=== PATIENT | male | born 1980 | race Caucasian/White ===

== ENCOUNTER 2016-05-24 22:42 | Emergency (ER) | payer MEDICAID ==
[~2016-05-24] VITALS: Ht 177.8 cm; Wt 77.1 kg
[~2016-05-24 22:42] MED LIST: ALBUTEROL SULF8.5 GM INH; AMOXICILLIN500 MG ORAL; CYCLOBENZAPRINE10 MG ORAL; FLOVENT2 PUFF2 INH; GENOPTIC O.O1 APPLIC LEFT EYE; IBUPROFEN600 MG ORAL; NORCO 5-325 TA1 EAC1 ORAL; NORCO 5-325 TA1 EACH ORAL; PREDNISONE20 MG ORAL; SYMBICORT 16010.2 G1 IH; VENTOLIN HFA18 GM INH
[2016-05-24] MEDS ORDERED: VENTOLIN HFA18 GM INH (23:51)
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
[2016-05-25] MEDS ORDERED: Albuterol ud Inhalation HHN ONE
[2016-05-25 00:45] VITALS: BP 133/66
== END 2016-05-25 00:45 | disposition home or self-care (01) ==
LOC: EMR 23:54
DX: J45.21 Mild intermittent asthma with (acute) exacerbation (principal)
CPT/HCPCS: 94640; 94664; 99283

== ENCOUNTER 2016-08-22 00:15 | Emergency (ER) | payer MEDICAID ==
[~2016-08-22] VITALS: Ht 177.8 cm; Wt 81.6 kg
[2016-08-22] MEDS: Norco 5mg/325mg tab ORAL ONE ×2 (01:18→01:22)
[2016-08-22] MEDS ORDERED: VALIUM5 MG ORAL (01:53)
[2016-08-22] MEDS ORDERED: HYDROCODON-ACE1 EA15 ORAL (01:53)
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
[2016-08-22 02:00] VITALS: BP_SYST 128; BP_SYST 133; BP_DIAS 80; BP_DIAS 86
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
== END 2016-08-22 02:02 | disposition home or self-care (01) ==
LOC: EMR 01:00
DX: S16.1XXA Strain of muscle, fascia and tendon at neck level, initial encounter (principal); J45.909 Unspecified asthma, uncomplicated; Z88.1 Allergy status to other antibiotic agents; V43.52XA Car driver injured in collision with other type car in traffic accident, initial encounter; Y92.410 Unspecified street and highway as the place of occurrence of the external cause; Y99.8 Other external cause status
CPT/HCPCS: 72052; 99284

== ENCOUNTER 2017-06-13 19:14 | Emergency (ER) | payer MEDICAID ==
[~2017-06-13] VITALS: Ht 180.3 cm; Wt 81.6 kg
[~2017-06-13 19:14] MED LIST changes: +HYDROCODON-ACE1 EA15 ORAL; +VALIUM5 MG ORAL
[2017-06-13] MEDS ORDERED: BREO ELLIPTA 11 EACH IH ×2 (19:29→19:53)
[2017-06-13] MEDS ORDERED: Albuterol ud Inhalation HHN ONE ×2 (19:45→20:15)
[2017-06-13] MEDS ORDERED: PREDNISONE20 MG ORAL (19:53)
[2017-06-13] MEDS ORDERED: VENTOLIN HFA18 GM INH (19:53)
--- NOTE | 2017-06-13 20:07 | Emergency Room Report ---
History of Present Illness General Chief Complaint: Dyspnea/Respdistress Source: Patient Present Illness HPI 36-year-old male presents with 2-3 days of productive cough Associated with recent rhinorrhea Denies chest pain, shortness of breath, myalgias, headache History of asthma, nonsmoker He used to use fluticasone daily Uses Ventolin only as rescue inhaler not On steroids currently Denies fever chills Allergies: Coded Allergies: ERYTHROMYCIN BASE (Unverified Adverse Reaction, Unknown, diarrhea, 02/03/14 ) Patient History Past Medical History: asthma Past Surgical History: none Pertinent Family History: none Social History: Denies: smoking, alcohol use, drug use Immunizations: UTD Reviewed Nursing Documentation: PMH: Agreed, PSxH: Agreed Nursing Documentation-PMH Past Medical History: No History, Except For Hx Asthma: Yes Review of Systems All Other Systems: negative except mentioned in HPI Physical Exam Vital Signs Date Time Temp Pulse Resp B/P (MAP) Pulse Ox O2 Delivery O2 Flow Rate FiO2 06/13/17 19:26 98.2 86 16 146/84 96 Room Air Sp02 EP Interpretation: reviewed, normal General Appearance: normal inspection, well appearing, no apparent distress, alert, GCS 15, non-toxic Head: normocephalic, atraumatic Eyes: bilateral eye PERRL, bilateral eye EOMI ENT: normal ENT inspection, hearing grossly normal, normal pharynx, no angioedema, normal voice, TMs + canals normal, uvula midline, moist mucus membranes Neck: normal inspection, full range of motion, supple, thyroid normal, no meningismus, no bony tend Respiratory: normal inspection, lungs clear, normal breath sounds, no rhonchi, no respiratory distress, no retraction, no accessory muscle use, speaking full sentences, wheezing Cardiovascular #1: regular rate, rhythm, no edema, no JVD, normal capillary refill Gastrointestinal: normal inspection, normal bowel sounds, non tender, soft, no mass, no peritonitis, non-distended, no guarding, no hernia, no pulsatile mass Genitourinary: no CVA tenderness Musculoskeletal: normal inspection, back normal, normal range of motion, no calf tenderness, pelvis stable, Kali's Sign negative Neurologic: normal inspection, alert, oriented x3, responsive, waistline joiner overlock III-XII nml as tested, motor strength/tone normal, cerebellar normal, normal gait, speech normal Psychiatric: normal inspection, judgement/insight normal, mood/affect normal, no suicidal/homicidal ideation, no delusions Skin: normal inspection, normal color, no rash Lymphatic: normal inspection, no adenopathy Medical Decision Making Diagnostic Impression: Primary Impression: Bronchitis ER Course mild asthma exacerbation likely due to URI Speaking full sentences No acute distress Rhinorrhea, post-nasal drip possible contribution to productive cough CXR negative for PNA No evidence of acute bacterial infection on exam Improved with albuterol X2, prednisone ER course: Patient has remained stable during ED stay. Disposition: Patient is to be discharged to home. Prescriptions given are prednisone, albuterol, fluticasone Patient is instructed to follow up with their primary care doctor within 5 days. Strict return precautions discussed with patient such as fever, chills, worsening/severe pain, nausea, vomiting, which may indicate severe illness. Patient verbalizes understanding and agrees with plan. Please note that this Emergency Department Report was dictated using [employer] technology software, occasionally this can lead to erroneous entry secondary to interpretation by the dictation equipment Chest X-Ray Diagnostic Results Chest X-Ray Diagnostic Results : Chest X-Ray Ordered: Yes # of Views/Limited/Complete: 1 View Indication: Shortness of Breath EP Interpretation: Yes Interpretation: no consolidation, no effusion, no pneumothorax, no acute cardiopulmonary disease Impression: No acute disease Electronically Signed by: Dr Forest Quinonez MD Last Vital Signs Date Time Temp Pulse Resp B/P (MAP) Pulse Ox O2 Delivery O2 Flow Rate FiO2 06/13/17 19:56 85 18 98 Room Air 06/13/17 19:26 98.2 146/84 Status: improved Disposition: HOME, SELF-CARE Condition: Improved Scripts Albuterol Sulfate (VENTOLIN HFA) 18 Gm Hfa.aer.ad 1 PUFF INH EVERY 6 HOURS for SOB, cough, #18 GM 0 Refills Prov: FOREST QUINONEZ M.D. 06/13/17 Fluticasone/Vilanterol (Breo Ellipta 100-25 Mcg INH) 1 Each Blst.w.dev 1 EACH IH DAILY for 30 Days, #1 EACH Prov: FOREST QUINONEZ M.D. 06/13/17 Prednisone* (PREDNISONE*) 20 Mg Tablet 40 MG ORAL DAILY for 3 Days, #6 TAB Prov: FOREST QUINONEZ M.D. 06/13/17 Patient Instructions: Acute Bronchitis, [id number] Additional Instructions: - Take prednisone twice daily for next 3 days - Take fluticasone daily - Use ventolin as needed for rescue medication FOREST QUINONEZ M.D. Jun 13, 2017 20:07
[2017-06-13 20:10] VITALS: BP 146/84
--- NOTE | 2017-06-14 09:12 | Diagnostic Imaging Report ---
Indication: Reason For Exam: SOB Technique: One view of the chest Comparison: 06/16/2015 Findings: Inspiration is suboptimal. Questionable faint ill-defined 13 mm density projects over the intersection of the right anterior second and posterior fifth ribs. The lungs and pleural spaces are otherwise clear. The heart size is normal. Impression: Questionable right upper lobe nodule, not evident on prior studies. Suspect summation artifact, but further evaluation with CT scan recommended to exclude neoplasm or other pathology No acute process otherwise Findings discussed by phone with Dr. Slater at the time of interpretation
== END 2017-06-13 20:25 | disposition home or self-care (01) ==
LOC: EMR 20:11
DX: J45.909 Unspecified asthma, uncomplicated (principal); Z88.1 Allergy status to other antibiotic agents
CPT/HCPCS: 71045; 94640; 94664; 99284; J7512

== ENCOUNTER 2017-08-29 04:06 | Emergency (ER) | payer MEDICAID, OTHER ==
[~2017-08-29] VITALS: Ht 180.3 cm; Wt 81.6 kg
[~2017-08-29 04:06] MED LIST changes: +BREO ELLIPTA 11 EACH IH
[2017-08-29 04:30] VITALS: BP 138/86
--- NOTE | 2017-08-29 04:47 | Emergency Room Report ---
History of Present Illness General Chief Complaint: Laceration Source: Patient Present Illness HPI This is a 37-year-old male with no past medical history. He presents with chief complaint of laceration to lip. Onset was on Sunday 4 days ago. He said that his lip as snagged on the metal part of the door. He sustained a small laceration. It bled initially but stopped. He came into for evaluation now because he felt throbbing sensation that area and want to see whether or not he can be sutured to remove the scar. Denies any other complaint or now. Allergies: Coded Allergies: ERYTHROMYCIN BASE (Unverified Adverse Reaction, Unknown, diarrhea, 02/03/14 ) Patient History Past Medical History: see triage record, old chart reviewed Past Surgical History: other Pertinent Family History: none Social History: Denies: smoking Immunizations: other Reviewed Nursing Documentation: PMH: Agreed; PSxH: Agreed Nursing Documentation-PM Past Medical History: No History, Except For Hx Asthma: Yes Review of Systems Eye: Denies: eye pain, blurred vision ENT: Denies: ear pain, nose congestion, throat swelling Respiratory: Denies: cough, shortness of breath Cardiovascular: Denies: chest pain, palpitations Gastrointestinal: Denies: abdominal pain, diarrhea, nausea, vomiting Musculoskeletal: Denies: back pain, joint pain Skin: Denies: rash Neurological: Denies: headache, numbness Endocrine: Denies: increased thirst, increased urine Hematologic/Lymphatic: Denies: easy bruising All Other Systems: negative except mentioned in HPI Physical Exam Vital Signs Date Time Temp Pulse Resp B/P (MAP) Pulse Ox O2 Delivery O2 Flow Rate FiO2 08/29/17 04:29 98.3 90 16 138/86 94 Room Air 98.2 vitals normal Sp02 EP Interpretation: reviewed, normal General Appearance: well appearing, no apparent distress, alert Head: normocephalic, atraumatic Eyes: bilateral eye PERRL, bilateral eye EOMI ENT: hearing grossly normal, normal pharynx, other - right upper lip: There is a V-shaped laceration of 3mm. No active bleeding. slightly gaping of about 1mm. Not through and through. Neck: full range of motion, supple, no meningismus Respiratory: chest non-tender, lungs clear, normal breath sounds Cardiovascular #1: regular rate, rhythm, no murmur Gastrointestinal: normal bowel sounds, non tender, no mass, no organomegaly, no bruit, non-distended Musculoskeletal: back normal, gait/station normal, normal range of motion Psychiatric: mood/affect normal Skin: warm/dry Medical Decision Making Diagnostic Impression: Primary Impression: Lip laceration Qualified Codes: S01.511A - Laceration without foreign body of lip, initial encounter ER Course Patient presents with a lip laceration that is several days old. Explained to the patient that I would not be suturing it because there was increased risk for infection. Also mean that I have to cut it back open again. Benefit would not outweighed the risk. We'll have him follow-up with plastic surgeon as needed. Last Vital Signs Date Time Temp Pulse Resp B/P (MAP) Pulse Ox O2 Delivery O2 Flow Rate FiO2 08/29/17 04:29 98.3 90 16 138/86 94 Room Air 98.2 Status: improved Disposition: HOME, SELF-CARE Condition: Stable Referrals: NOT CHOSEN IPA/,REFERRING (PCP) Patient Instructions: Nonsutured Laceration Care Additional Instructions: Your laceration is too old to be sutured right now. Follow-up with a plastic surgeon if you want any cosmetic suture repair. Return if symptom worsen. ANNALISA CORBETT M.D. Aug 29, 2017 04:47
[2017-08-29 04:50] VITALS: BP 138/86
== END 2017-08-29 04:50 | disposition home or self-care (01) ==
LOC: EMR 04:38
DX: S01.511A Laceration without foreign body of lip, initial encounter (principal); W22.8XXA Striking against or struck by other objects, initial encounter; Y92.9 Unspecified place or not applicable; J45.909 Unspecified asthma, uncomplicated; Z88.1 Allergy status to other antibiotic agents
CPT/HCPCS: 99282

== ENCOUNTER 2017-09-29 20:18 | Emergency (ER) | payer OTHER ==
[~2017-09-29] VITALS: Ht 177.8 cm; Wt 81.6 kg
[2017-09-29 20:50] VITALS: BP 149/91
[2017-09-29] MEDS ORDERED: IBUPROFEN600 MG ORAL (21:34)
[2017-09-29 21:55] VITALS: BP 149/91
--- NOTE | 2017-09-29 21:55 | Diagnostic Imaging Report ---
EXAM: XR Right Hand Complete, 3 or More Views CLINICAL HISTORY: PAIN TECHNIQUE: Frontal, lateral and oblique views of the right hand. COMPARISON: No relevant prior studies available. FINDINGS: Bones/joints: Displaced spiral fracture through the third metacarpal. No dislocation. Soft tissues: Unremarkable. No radiopaque foreign body. IMPRESSION: Displaced spiral fracture through the third metacarpal.
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
== END 2017-09-29 21:55 | disposition home or self-care (01) ==
LOC: EMR 21:00
DX: S62.322A Displaced fracture of shaft of third metacarpal bone, right hand, initial encounter for closed fracture (principal); V43.52XA Car driver injured in collision with other type car in traffic accident, initial encounter; Y92.410 Unspecified street and highway as the place of occurrence of the external cause; J45.909 Unspecified asthma, uncomplicated; Z88.1 Allergy status to other antibiotic agents
CPT/HCPCS: 29125; 99283

== ENCOUNTER 2017-10-06 17:09 | Emergency (ER) | payer OTHER ==
[~2017-10-06] VITALS: Ht 170.2 cm; Wt 81.6 kg
[2017-10-06 17:20] VITALS: BP 142/79
--- NOTE | 2017-10-06 17:26 | Emergency Room Report ---
History of Present Illness General Chief Complaint: Upper Extremity Injury Present Illness HPI 37-year-old male patient presents ER requesting x-ray of right hand. Patient reports that he has a fracture of one of his wrist bones and was seen in this ER previously 1 week ago. States that since that time he is followed up with his orthopedic doctor they placed his wrist and hand. patient reports that he was in the shower earlier today and heard a "pop" in his right hand. Reports he contact his orthopedist who told him to report [facility] to have repeat imaging done. patient denies any loss of consciousness. patient reports he is right- hand dominant. patient denies other acute symptoms at this time. reports was told by orthopedist that he does not need surgery. Allergies: Coded Allergies: ERYTHROMYCIN BASE (Unverified Adverse Reaction, Unknown, diarrhea, 02/03/14 ) Patient History Past Medical History: see triage record Reviewed Nursing Documentation: PMH: Agreed; PSxH: Agreed Nursing Documentation-PMH Hx Asthma: Yes Review of Systems All Other Systems: negative except mentioned in HPI Physical Exam Vital Signs Date Time Temp Pulse Resp B/P (MAP) Pulse Ox O2 Delivery O2 Flow Rate FiO2 10/06/17 17:12 98.0 89 20 142/79 99 Room Air 98.1 Sp02 EP Interpretation: reviewed, normal General Appearance: well appearing, no apparent distress, alert, GCS 15, non- toxic Head: normocephalic, atraumatic Respiratory: lungs clear, normal breath sounds, no rhonchi, no respiratory distress, no accessory muscle use, no wheezing, speaking full sentences Cardiovascular #1: regular rate, rhythm, no edema Musculoskeletal: back normal, digits/nails normal, gait/station normal, non- tender, decreased range of motion - secondary to cast, other - able to wiggle fingers, cap Refill less than 2 seconds Neurologic: alert, oriented x3, responsive, motor strength/tone normal, sensory intact Medical Decision Making PA Attestation Dr. Slater is my supervising Physician whom patient management has been discussed with. Diagnostic Impression: Primary Impression: Fracture of fourth metacarpal bone Additional Impression: Fracture of third metacarpal bone ER Course Pt. presents to the ED requesting repeat xray of fracture right hand s/p hearing "pop". Ddx considered but are not limited to fracture, sprain, strain, contusion, dislocation. No erythema, no warmth to touch, no fever, nontoxic appearing, low suspicion for septic joint. Vital signs: are WNL, pt. is afebrile Ordered X-ray and pain medication. ER COURSE PE limited due to cast, do not believe cast needs to be removed at this time. Previous report and x-ray reviewed, patient has spiral fracture of 3rd metacarpal on right hand. Patient resents to ER with right hand hard cast. Do not believe cast needs to be removed at this time, limits complete physical exam due to cast. An X-ray of the right hand was ordered, results show 1. Radiographs submitted in plaster limiting bony detail. 2. Previously seen spiral fracture of the third metacarpal appears slightly more displaced radially on the current study which may be due to differences in technique/positioning. Attention on followup. 3. Minimally displaced spiral fracture of the mid fourth metacarpal now evident , new from prior. Correlate for interval trauma. Alternatively, findings may reflect interval displacement of a previously nondisplaced/hairline fracture. Orthopedic followup recommended. 4. No dislocation. per the official [facility] reading. Consult with [facility] radiologist regarding findings. Patient currently in hard cast provided by financial services specialist, fracture is minimally displaced, does not need new casting at this time. Patient instructed on RICE method: rest, ice, compression, elevation. Followup with orthopedist to discuss further treatment and plan. Patient denies pain, denies need for pain medication, states taking Tylenol Extra Strength at home for pain symptoms. Denies need for Rx for pain medication. DISCHARGE: Continue to take medications as previously instructed by financial services specialist. At this time pt. is stable for d/c to home. Patient is resting comfortably, in no acute distress, nontoxic appearing, talking without difficulty. Will provide printed patient care instructions, and any necessary prescriptions. Patient instructed to follow with primary care provider in 3 - 5 days and to request further orthopedic follow-up. Care plan and follow up instructions have been discussed with the patient prior to discharge. Take medications as directed. Patient questions asked and answered. Patient reports understanding and agreement to treatment plan. ER precautions given, patient instructed to return to ER immediately for any new or worsening of symptoms. - Please note that this Emergency Department Report was dictated using Nostore[employer]istered medical transcriptionist technology software, occasionally this can lead to erroneous entry secondary to interpretation by the dictation equipment. Other X-Ray Diagnostic Results Other X-Ray Diagnostic Results : X-Ray ordered: right hand # of Views/Limited Vs Complete: 3 View Indication: Pain EP Interpretation: Yes PA Xray: Interpretation reviewed, by supervising MD, and agrees with findings. Interpretation: other - minimally displaced fractures of third and fourth metacarpals, hand in cast Impression: Other - fracture of third and fourth metacarpal PA Scribe Text Mark Carson PA-C Last Vital Signs Date Time Temp Pulse Resp B/P (MAP) Pulse Ox O2 Delivery O2 Flow Rate FiO2 10/06/17 17:20 98.1 20 142/79 99 Room Air 98.1 10/06/17 17:12 89 Disposition: HOME, SELF-CARE Condition: Stable Patient Instructions: Metacarpal Fracture Additional Instructions: Patient instructed to follow up with orthopedist and discuss further treatment and referral plan. Patient instructed on RICE method: rest, ice, compression, elevation. Patient instructed to NWB. Take medications as directed. Patient questions asked and answered. ER precautions given, patient instructed to return to ER immediately for any new or worsening of symptoms. [place] October 06, 2017 17:26
--- NOTE | 2017-10-06 18:17 | Diagnostic Imaging Report ---
EXAM: XR Right Hand Complete, 3 or More Views CLINICAL HISTORY: PAIN TECHNIQUE: Frontal, lateral and oblique views of the right hand. COMPARISON: 09/29/17 FINDINGS: Bones/joints: 3 radiographs of the right hand are submitted in plaster which limits bony detail. Spiral fracture of the third metacarpal as seen on prior with stable versus slightly increased radial displacement (2.4 mm) allowing for differences in technique. Minimally displaced spiral fracture of the mid fourth metacarpal appears new compared to prior and could reflect interval displacement of a previously nondisplaced/hairline fracture. No dislocation. Prior surgical pinning of a fracture of the fourth digit fracture again seen. Soft tissues: Unremarkable. No radiopaque foreign body. IMPRESSION: 1. Radiographs submitted in plaster limiting bony detail. 2. Previously seen spiral fracture of the third metacarpal appears slightly more displaced radially on the current study which may be due to differences in technique/positioning. Attention on followup. 3. Minimally displaced spiral fracture of the mid fourth metacarpal now evident, new from prior. Correlate for interval trauma. Alternatively, findings may reflect interval displacement of a previously nondisplaced/hairline fracture. Orthopedic followup recommended. 4. No dislocation. [employer] 10/06/17 18:18 Call Doctor Regarding Other, called Mark NICKERSON on 10/06 18:18 (-07:00)
[2017-10-06 18:33] VITALS: BP 142/79
== END 2017-10-06 18:34 | disposition home or self-care (01) ==
LOC: EMR 17:53
DX: S62.302A Unspecified fracture of third metacarpal bone, right hand, initial encounter for closed fracture (principal); W22.8XXA Striking against or struck by other objects, initial encounter; Y92.9 Unspecified place or not applicable; Z88.1 Allergy status to other antibiotic agents; J45.909 Unspecified asthma, uncomplicated
CPT/HCPCS: 99283

== ENCOUNTER 2017-10-29 23:52 | Emergency (ER) | payer OTHER ==
[~2017-10-29] VITALS: Ht 177.8 cm; Wt 81.6 kg
[2017-10-30 00:50] VITALS: BP 131/76
[2017-10-30] MEDS ORDERED: Tylenol #3 tab (300mg/30mg) PO ONE (01:00)
[2017-10-30] MEDS ORDERED: ROBAXIN-750750 MG PO (03:13)
[2017-10-30] MEDS ORDERED: NORCO 5-325 TA1 EACH ORAL (03:13)
[2017-10-30] MEDS ORDERED: IBUPROFEN600 MG ORAL (03:13)
[2017-10-30 03:20] VITALS: BP 125/74
[2017-10-30 03:21] VITALS: BP 131/76
--- NOTE | 2017-10-30 13:17 | Diagnostic Imaging Report ---
Indication: Pain in ribs and chest Technique: One view of the chest, 2 views of the right ribs, 2 views of the left ribs Comparison: none Findings: There is atelectasis at the left lung base. Lungs and pleural spaces are otherwise clear. The heart is upper limits normal in size. No pneumothorax. No evidence of acute rib fracture. Impression: Left basilar atelectasis. No acute process otherwise No acute bony trauma. No evidence of pneumothorax
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
== END 2017-10-30 03:21 | disposition home or self-care (01) ==
LOC: EMR 10-30 00:45
DX: S20.212A Contusion of left front wall of thorax, initial encounter (principal); S20.211A Contusion of right front wall of thorax, initial encounter; Y04.2XXA Assault by strike against or bumped into by another person, initial encounter; Y92.9 Unspecified place or not applicable; J45.909 Unspecified asthma, uncomplicated
CPT/HCPCS: 71045; 99284

== ENCOUNTER 2018-03-17 19:06 | Emergency (ER) | payer OTHER ==
[~2018-03-17] VITALS: Ht 177.8 cm; Wt 81.6 kg
[~2018-03-17 19:06] MED LIST changes: +ROBAXIN-750750 MG PO
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
[2018-03-17] MEDS ORDERED: NAPROXEN500 M2 ORAL (19:36)
[2018-03-17] MEDS ORDERED: VOLTAREN100 G1 TP (19:36)
[2018-03-17 19:41] VITALS: BP 130/87
[2018-03-17 19:50] VITALS: BP 130/87
== END 2018-03-17 19:50 | disposition home or self-care (01) ==
LOC: EMR 19:32
DX: S00.83XA Contusion of other part of head, initial encounter (principal); Y04.2XXA Assault by strike against or bumped into by another person, initial encounter; Y92.9 Unspecified place or not applicable; Z88.1 Allergy status to other antibiotic agents; J45.909 Unspecified asthma, uncomplicated
CPT/HCPCS: 99283

== ENCOUNTER 2018-06-17 19:11 | Emergency (ER) | payer MEDICAID, OTHER ==
[~2018-06-17] VITALS: Ht 177.8 cm; Wt 88.5 kg
[~2018-06-17 19:11] MED LIST changes: +NAPROXEN500 M2 ORAL; +VOLTAREN100 G1 TP
[2018-06-17 19:20] VITALS: BP 132/81
--- NOTE | 2018-06-17 19:20 | NUR ---
ED Nurse Note: Patient presents with asthma exacerbation and finger injury of right middle finger. pt noted to have wound on the right middle finger, pt stated it happend few days ago. denies pain. will continue to monitor.
[2018-06-17] MEDS ORDERED: Bacitracin Oint UD TOPIC ONE (19:45)
[2018-06-17] MEDS ORDERED: Augmentin 875mg Tab ORAL ONE (19:45)
[2018-06-17] MEDS ORDERED: Tetanus/Diptheria/Pertussis Vaccine 0.5ml Syr IM ONE (19:45)
[2018-06-17] MEDS: Ipratropium 0.02% Inh Soln 2.5ml UD HHN SCH ×3 (19:55→20:15)
[2018-06-17] MEDS: Albuterol ud Inhalation HHN SCH ×3 (19:56→20:15)
[2018-06-17] MEDS ORDERED: BACITRACIN15 GM TOPIC (20:55)
[2018-06-17] MEDS ORDERED: AUGMENTIN 875-1 EAC1 ORAL (20:55)
[2018-06-17] MEDS ORDERED: FLOVENT2 PUFF2 INH (20:55)
[2018-06-17] MEDS ORDERED: PREDNISONE20 MG ORAL (20:55)
[2018-06-17] MEDS ORDERED: ALBUTEROL SULF8.5 GM INH (20:55)
[2018-06-17 21:05] VITALS: BP 132/81
--- NOTE | 2018-06-17 21:05 | NUR ---
ER Nurse Note: Pt seen, treated, medically cleared for discharge by ERMD. Discharge instructions and prescriptions given with repeat verbalization by pt. Instructed pt to follow up with primary care physican within one week. Pt a&ox4, VSS, no signs of distress. O2 sat 100% room air. ID removed. Pt ambulates, left with all belongings via own transportation.
--- NOTE | 2018-06-19 07:06 | Emergency Room Report ---
History of Present Illness General Chief Complaint: Asthma Source: Patient Present Illness HPI 37-year-old male presents ED for evaluation. Patient complaining of asthma exacerbation. Started 2 days ago. States he does not have an inhaler at this time. Notes wheezing. Denies cough. Denies fevers or chills. Denies sick contacts or recent travel. Denies getting flu shot. Also notes a laceration to his right index finger. Happened one week ago when he was moving furniture. Did not come to the ER at that time. Tetanus unknown. Denies pain. No other aggravating relieving factors. Denies any other associated symptoms Allergies: Coded Allergies: ERYTHROMYCIN BASE (Unverified Adverse Reaction, Unknown, diarrhea, 02/03/14 ) Patient History Past Medical History: asthma Past Surgical History: none Pertinent Family History: none Social History: Denies: smoking, alcohol use, drug use Immunizations: UTD Reviewed Nursing Documentation: PMH: Agreed; PSxH: Agreed Nursing Documentation-PMH Past Medical History: No History, Except For Hx Asthma: Yes Review of Systems All Other Systems: negative except mentioned in HPI Physical Exam Vital Signs Date Time Temp Pulse Resp B/P (MAP) Pulse Ox O2 Delivery O2 Flow Rate FiO2 06/17/18 19:16 98.4 99 16 132/81 96 Room Air 06/17/18 19:54 21 Sp02 EP Interpretation: reviewed, normal General Appearance: no apparent distress, alert, GCS 15, non-toxic Head: normocephalic Eyes: bilateral eye normal inspection, bilateral eye PERRL ENT: normal ENT inspection Neck: normal inspection Respiratory: wheezing Cardiovascular #1: regular rate, rhythm, no edema Gastrointestinal: normal inspection Rectal: deferred Genitourinary: no CVA tenderness Musculoskeletal: normal range of motion Neurologic: alert, oriented x3, responsive, motor strength/tone normal, sensory intact, speech normal Psychiatric: normal inspection Skin: laceration - healing laceration to R index finger. granulation tissue noted. no discharge. no erythema/induration. no fluctuance Lymphatic: normal inspection Medical Decision Making Diagnostic Impression: Primary Impression: Finger infection Additional Impression: Asthma attack Qualified Codes: J45.21 - Mild intermittent asthma with (acute) exacerbation ER Course Hospital Course 37-year-old male presents to ED complaining of wheezing. c/o finger laceration x 1 week Differential diagnoses include: URI, bronchitis, asthma/COPD, pneumonia Clinical course Patient placed on stretcher. After initial history, physical exam reveals a male in no acute distress. Bilateral TM unremarkable. No pharyngeal erythema. No tonsillar exudates. No lymphadenopathy. Mild wheezing noted on exam, no signs of respiratory distress or retractions. Patient given Prednisone and albuterol treatment in ED with symptoms improved. There is a healing laceration to the right index finger. I explained that given it is a-week-old we cannot repair it. Needs to heal by secondary intention. Wound irrigated. Bacitracin and dressing applied. We'll prescribe antibiotics Patient states he needs a prescription for Klonopin to help him sleep. I explained that I cannot provide him a Klonopin prescription and he needs to see psychiatry Patient states he does not have a PMD. We'll provide referrals. Safe for discharge with close outpatient follow-up Diagnosis - finger infection, asthma attack Stable and discharged home with prescriptions for prednisone, flovent, albuterol inhaler, augmentin, bacitracin. Instructed to followup with PMD. Return to ED if symptoms recur or worsen Last Vital Signs Date Time Temp Pulse Resp B/P (MAP) Pulse Ox O2 Delivery O2 Flow Rate FiO2 06/17/18 21:05 98.4 17 18 132/81 100 Room Air 21 Status: improved Disposition: HOME, SELF-CARE Condition: Stable Scripts Bacitracin (Bacitracin) 28.4 Gm Oint...g. 1 APPLIC TOPIC THREE TIMES A DAY, #28.4 GM Prov: Bahman Mooney MD 06/17/18 Albuterol Sulfate* (ALBUTEROL SULFATE MDI*) 8.5 Gm Hfa.aer.ad 2 PUFF INH Q6H, #1 EA 0 Refills Prov: Bahman Mooney MD 06/17/18 Fluticasone Propionate (Flovent Hfa) 12 Gm Aer.w.adap 2 PUFFS INH TWICE A DAY, #1 EA 0 Refills Prov: Bahman Mooney MD 06/17/18 Prednisone* (PREDNISONE*) 20 Mg Tablet 40 MG ORAL DAILY, #10 TAB Prov: Bahman Mooney MD 06/17/18 Amoxicillin/Potassium Clav 875-125* (AUGMENTIN 875-125 TABLET*) 1 Each Tablet 1 TAB ORAL TWICE A DAY, #14 TAB Prov: Bahman Mooney MD 06/17/18 Referrals: [facility],REFERRING (PCP) [facility] Patient Instructions: Asthma, Adult Bahman Mooney MD Jun 19, 2018 07:06
== END 2018-06-17 21:05 | disposition home or self-care (01) ==
LOC: EMR 20:47
DX: S61.210A Laceration without foreign body of right index finger without damage to nail, initial encounter (principal); L08.9 Local infection of the skin and subcutaneous tissue, unspecified; W45.8XXA Other foreign body or object entering through skin, initial encounter; Y92.89 Other specified places as the place of occurrence of the external cause; J45.21 Mild intermittent asthma with (acute) exacerbation; Z23 Encounter for immunization; Z88.1 Allergy status to other antibiotic agents
CPT/HCPCS: 90471; 90715; 94640; 94664; 99284; J7512

== ENCOUNTER 2018-11-17 22:37 | Emergency (ER) | payer MEDICAID ==
[~2018-11-17] VITALS: Ht 177.8 cm; Wt 131.5 kg
[~2018-11-17 22:37] MED LIST changes: +AUGMENTIN 875-1 EAC1 ORAL; +BACITRACIN15 GM TOPIC
[2018-11-17 23:00] VITALS: BP 143/82
--- NOTE | 2018-11-17 23:00 | NUR ---
ER Nurse Note: Pt came from home c/o difficutly breathing since 11/16. Pt has expiratory wheezes with cough. Pt stated he has yellow-green phlgem. RT [facility]
[2018-11-17] MEDS ORDERED: Albuterol ud Inhalation HHN ONE ×2 (23:15→23:45)
[2018-11-17] MEDS ORDERED: Ipratropium 0.02% Inh Soln 2.5ml UD HHN ONE (23:15)
--- NOTE | 2018-11-17 23:40 | Emergency Room Report ---
History of Present Illness General Chief Complaint: Dyspnea/Respdistress Source: Patient Present Illness HPI Patient presents with shortness of breath. Onset for 2 days. Worse with exertion. Worse with inspiration. Out of his inhaler. No nausea no vomiting. Coughing is productive green sputum. Allergies: Coded Allergies: ERYTHROMYCIN BASE (Unverified Adverse Reaction, Unknown, diarrhea, 11/17/18 ) Patient History Past Medical History: see triage record, old chart reviewed, asthma Past Surgical History: none Pertinent Family History: none Social History: Denies: smoking Immunizations: other Reviewed Nursing Documentation: PMH: Agreed; PSxH: Agreed Nursing Documentation-PMH Hx Asthma: Yes Review of Systems Eye: Denies: eye pain, blurred vision ENT: Denies: ear pain, nose congestion, throat swelling Respiratory: Reports: cough, shortness of breath, wheezing Cardiovascular: Denies: chest pain, palpitations Gastrointestinal: Denies: abdominal pain, diarrhea, nausea, vomiting Musculoskeletal: Denies: back pain, joint pain Skin: Denies: rash Neurological: Denies: headache, numbness Endocrine: Denies: increased thirst, increased urine Hematologic/Lymphatic: Denies: easy bruising All Other Systems: negative except mentioned in HPI Physical Exam Vital Signs Date Time Temp Pulse Resp B/P (MAP) Pulse Ox O2 Delivery O2 Flow Rate FiO2 11/17/18 22:54 98.4 78 16 143/82 (102) 94 Room Air 11/17/18 23:06 21 Vitals unremarkable Sp02 EP Interpretation: reviewed, normal General Appearance: well appearing, no apparent distress, alert Head: normocephalic, atraumatic Eyes: bilateral eye PERRL, bilateral eye EOMI ENT: hearing grossly normal, normal pharynx Neck: full range of motion, supple, no meningismus Respiratory: chest non-tender, decreased breath sounds, accessory muscle use, wheezing Cardiovascular #1: regular rate, rhythm, no murmur Gastrointestinal: normal bowel sounds, non tender, no mass, no organomegaly, no bruit, non-distended Musculoskeletal: back normal, gait/station normal, normal range of motion Psychiatric: mood/affect normal Medical Decision Making Diagnostic Impression: Primary Impression: Asthma attack Qualified Codes: J45.21 - Mild intermittent asthma with (acute) exacerbation ER Course Patient with asthma exacerbation. No evidence of pneumonia or sepsis. Will discharge home. Last Vital Signs Date Time Temp Pulse Resp B/P (MAP) Pulse Ox O2 Delivery O2 Flow Rate FiO2 11/17/18 23:26 80 20 100 Room Air 21 11/17/18 23:00 98.4 143/82 Status: improved Disposition: HOME, SELF-CARE Condition: Stable Scripts Fluticasone/Vilanterol (Breo Ellipta 200-25 Mcg INH) 1 Each Blst.w.dev 1 EACH IH BID, #1 UNIT Prov: Jarrod Cárdenas MD 11/17/18 Azithromycin* (ZITHROMAX*) 250 Mg Tablet 250 MG ORAL DAILY, #6 TAB 0 Refills Take two tables once daily for 1 day, then one tablet once daily for 4 days. Prov: Jarrod Cárdenas MD 11/17/18 Prednisone* (PREDNISONE*) 20 Mg Tablet 40 MG ORAL DAILY, #8 TAB Prov: Jarrod Cárdenas MD 11/17/18 Albuterol Sulfate* (ALBUTEROL SULFATE MDI*) 8.5 Gm Hfa.aer.ad 2 PUFF INH Q4H PRN for cough/wheezing, #1 EA 0 Refills Prov: Jarrod Cárdenas MD 11/17/18 Additional Instructions: Follow-up with your doctor in 3 to 5 days. Return if worse. Jarrod Cárdenas MD Nov 17, 2018 23:40
[2018-11-17] MEDS ORDERED: BREO ELLIPTA 21 EACH IH (23:42)
[2018-11-17] MEDS ORDERED: ZITHROMAX250 MG ORAL (23:42)
[2018-11-17] MEDS ORDERED: PREDNISONE20 MG ORAL (23:42)
[2018-11-17] MEDS ORDERED: ALBUTEROL SULF8.5 GM INH (23:42)
[2018-11-17] MEDS ORDERED: AMOXICILLIN500 MG ORAL (23:58)
[2018-11-18] VITALS: BP 143/82
--- NOTE | 2018-11-18 | NUR ---
ER Nurse Note: Pt seen, treated, medically cleared for discharge by ERMD. Discharge instuctions and prescriptions given with repeat verbalization by pt. Emphasized to follow up with primay care provider. All orders completed per ERMD orders. Pt a&ox4, VSS, no signs of distress. Breathing treatment x2 completed, no wheezes heard. Pt stated he is breathing much easier. ID band removed. Pt ambulaitory with steady gait, left with all belongings, left with own transportation.
== END 2018-11-18 | disposition home or self-care (01) ==
LOC: EMR 23:00
DX: J45.21 Mild intermittent asthma with (acute) exacerbation (principal); Z88.8 Allergy status to other drugs, medicaments and biological substances
CPT/HCPCS: 94640; 94664; 99284; J7512

== ENCOUNTER 2018-12-23 13:23 | Emergency (ER) | payer SELFPAY ==
[~2018-12-23] VITALS: Ht 177.8 cm; Wt 88.5 kg
[~2018-12-23 13:23] MED LIST changes: +BREO ELLIPTA 21 EACH IH; +ZITHROMAX250 MG ORAL
[2018-12-23 13:32] VITALS: BP 153/103
--- NOTE | 2018-12-23 13:40 | NUR ---
ED Nurse Note: Patient walked into ED c/o neck pain, mainly on the left side, radiating to his left shoulder since this morning. patient is alert awake x4 ambulatory.
[2018-12-23] MEDS ORDERED: Naproxen 500mg tab ORAL ONE (13:45)
[2018-12-23] MEDS ORDERED: Cyclobenzaprine 10mg Tab ORAL ONE (13:45)
--- NOTE | 2018-12-23 13:52 | Emergency Room Report ---
History of Present Illness General Chief Complaint: Neck Pain Present Illness HPI 38-year-old female with no symptom past medical history here complaining of pain in neck radiating to left shoulder that suddenly started while he was sleep last night. Patient denies any fall or injury. Denies a strenuous physical activity rating the pain 10 out of 10 extremely anxious. Has not taken medication for pain has full range of motion of his neck. No motor or sensory deficits noted. Denies chest pain, shortness of breath, headache, dizziness, palpitation, and other associated symptoms. Denies fever and chills , photophobia, recent URI symptoms Allergies: Coded Allergies: ERYTHROMYCIN BASE (Unverified Adverse Reaction, Unknown, diarrhea, 11/17/18 ) Patient History Past Medical History: see triage record Past Surgical History: unable to obtain Pertinent Family History: none Immunizations: UTD Reviewed Nursing Documentation: PMH: Agreed; PSxH: Agreed Nursing Documentation-PMH Hx Asthma: Yes Review of Systems All Other Systems: negative except mentioned in HPI Physical Exam Vital Signs Date Time Temp Pulse Resp B/P (MAP) Pulse Ox O2 Delivery O2 Flow Rate FiO2 12/23/18 13:32 98.2 65 16 153/103 (120) 96 Room Air Sp02 EP Interpretation: reviewed, normal General Appearance: normal inspection, well appearing, no apparent distress Head: normocephalic, atraumatic Eyes: bilateral eye normal inspection, bilateral eye PERRL ENT: normal ENT inspection, hearing grossly normal, normal pharynx Neck: normal inspection, full range of motion, supple Respiratory: normal inspection, chest non-tender, lungs clear, no rhonchi Cardiovascular #1: normal inspection, normal peripheral pulses, regular rate, rhythm, no edema, no gallop, no murmur Cardiovascular #2: 2+ carotid (R), 2+ carotid (L) Gastrointestinal: normal inspection, soft Rectal: deferred Genitourinary: no CVA tenderness Musculoskeletal: normal inspection, back normal, digits/nails normal Neurologic: normal inspection, alert, cerebellar normal Psychiatric: normal inspection, judgement/insight normal Skin: no rash Lymphatic: normal inspection Medical Decision Making PA Attestation All my diagnosis and treatment plans were reviewed ad discussed with my supervising physician Dr. Slater Diagnostic Impression: Primary Impression: Cervical strain ER Course 38-year-old female with no symptom past medical history here complaining of pain in neck radiating to left shoulder that suddenly started while he was sleep last night. Patient denies any fall or injury. Denies a strenuous physical activity rating the pain 10 out of 10 extremely anxious. Has not taken medication for pain has full range of motion of his neck. No motor or sensory deficits noted. Denies chest pain, shortness of breath, headache, dizziness, palpitation, and other associated symptoms. Denies fever and chills , photophobia, recent URI symptoms Ddx considered but are not limited to : Cervical spine sprain versus strain versus fracture Vital signs: are WNL, pt. is afebrile H&PE are most consistent with: Cervical spine strain ORDERS: Cervical spine x-ray patient denied, Flexeril, naproxen, Robaxin ED INTERVENTIONS: Naproxen patient refused to have any IM injection DISCHARGE: At this time pt. is stable for d/c to home. Will provide printed patient care instructions, and any necessary prescriptions. Care plan and follow up instructions have been discussed with the patient prior to discharge. Alternate between icing or heating the affected area follow-up with your primary care provider if worsening symptoms return to the emergency room Last Vital Signs Date Time Temp Pulse Resp B/P (MAP) Pulse Ox O2 Delivery O2 Flow Rate FiO2 12/23/18 13:32 98.2 65 16 153/103 (120) 96 Room Air Disposition: HOME, SELF-CARE Condition: Stable Scripts Naproxen* (NAPROXEN*) 500 Mg Tablet 500 MG ORAL TWICE A DAY, #30 TAB Prov: Kristen Maddox 12/23/18 Methocarbamol* (ROBAXIN*) 500 Mg Tablet 500 MG PO TID, #21 TAB 0 Refills Prov: Kristen Maddox 12/23/18 Patient Instructions: Cervical Strain and Sprain With Rehab-SportsMed Additional Instructions: Take medication as directed alternate between icing and heating the affected area follow-up with your primary care provider. If worsening symptoms return to the emergency room. Kristen Maddox Dec 23, 2018 13:52
[2018-12-23] MEDS ORDERED: ROBAXIN500 MG PO (14:48)
[2018-12-23] MEDS ORDERED: NAPROXEN500 M2 ORAL (14:48)
--- NOTE | 2018-12-23 14:48 | NUR ---
ED Nurse Note: patient reports that flexeril and naprosyn was barely helping with his pain, notified to Kristen NICKERSON
[2018-12-23 14:58] VITALS: BP 153/103
--- NOTE | 2018-12-23 14:58 | NUR ---
ER DISCHARGE NOTE: Patient is cleared to be discharged per ROBERT REY, pt is aox4, on room air, with stable vital signs. pt was given dc and prescription instructions, pt was able to verbalize understanding, pt id band removed without complications. pt is able to ambulate with steady gait. pt took all belongings.
== END 2018-12-23 14:58 | disposition home or self-care (01) ==
LOC: EMR 14:00
DX: S16.1XXA Strain of muscle, fascia and tendon at neck level, initial encounter (principal); M25.512 Pain in left shoulder; Z88.8 Allergy status to other drugs, medicaments and biological substances; X58.XXXA Exposure to other specified factors, initial encounter; Y92.9 Unspecified place or not applicable
CPT/HCPCS: 99282

== ENCOUNTER 2019-01-01 21:22 | Emergency (ER) | payer SELFPAY ==
[~2019-01-01] VITALS: Ht 177.8 cm; Wt 86.2 kg
[~2019-01-01 21:22] MED LIST changes: +ROBAXIN500 MG PO
--- NOTE | 2019-01-01 21:34 | NUR ---
ED Nurse Note: PT AMBULATED TO ED C/O "PINCHED NERVE" ON LEFT TRAPEZIUS MUSCLE WITH TINGLING ON LEFT FINGERS X 9 DAYS. Pt states he was exercise in gym last week. AO x 4times, VSS, on room air no distress. LALITO seen Pt at bedside.
[2019-01-01 21:36] VITALS: BP 141/97
--- NOTE | 2019-01-01 21:40 | Emergency Room Report ---
History of Present Illness General Chief Complaint: Pain Source: Patient Present Illness HPI 38-year-old male presents with left trapezius pain, patient states is been going for 7 days patient reports that he may have slept incorrectly, he states exacerbated with movement alleviated with rest, he endorses severity is severe, no nausea no vomiting, no focal weakness, no chest pain or shortness of breath, patient states he needs to be taken out of pain. Allergies: Coded Allergies: ERYTHROMYCIN BASE (Unverified Adverse Reaction, Unknown, diarrhea, 11/17/18 ) Patient History Past Medical History: see triage record Reviewed Nursing Documentation: PMH: Agreed; PSxH: Agreed Nursing Documentation-PMH Past Medical History: No History, Except For Hx Asthma: Yes Review of Systems All Other Systems: negative except mentioned in HPI Physical Exam Vital Signs Date Time Temp Pulse Resp B/P (MAP) Pulse Ox O2 Delivery O2 Flow Rate FiO2 01/01/19 21:26 97.9 85 16 139/104 (116) 97 Room Air Sp02 EP Interpretation: reviewed, normal General Appearance: well appearing, no apparent distress, alert Head: normocephalic, atraumatic Eyes: bilateral eye PERRL, bilateral eye EOMI ENT: uvula midline, moist mucus membranes Neck: supple, thyroid normal, supple/symm/no masses, tender lateral - Left trapezius tight, tender to palpation Respiratory: lungs clear, no respiratory distress, no retraction, no accessory muscle use Cardiovascular #1: normal peripheral pulses, regular rate, rhythm, no edema, no gallop, no murmur Gastrointestinal: non tender, soft, no guarding, no rebound Musculoskeletal: normal inspection Neurologic: alert, oriented x3 Psychiatric: mood/affect normal Skin: no rash, warm/dry Medical Decision Making Diagnostic Impression: Primary Impression: Muscle strain Additional Impression: Torticollis, acute ER Course 38-year-old male presents with left eye trapezius, anti-inflammatory was given, Toradol given, trigger point injections were done, patient tolerated procedure well, disposition home with return precautions Cures report ran. Last Vital Signs Date Time Temp Pulse Resp B/P (MAP) Pulse Ox O2 Delivery O2 Flow Rate FiO2 01/01/19 21:36 98.4 88 16 141/97 98 Room Air Disposition: HOME, SELF-CARE Condition: Stable Scripts Methocarbamol* (ROBAXIN-750*) 750 Mg Tablet 750 MG PO QID, #28 TAB 0 Refills Prov: Taiwo Boyd MD 01/01/19 Naproxen* (NAPROSYN*) 250 Mg Tablet 250 MG ORAL BID PRN for For Pain, #20 TAB 0 Refills Prov: Taiwo Boyd MD 01/01/19 Hydrocodone Bit/Acetaminophen 5-325* (NORCO 5-325*) 1 Each Tablet 1 TAB ORAL Q6H PRN for For Pain, #12 TAB 0 Refills Prov: Taiwo Boyd MD 01/01/19 Referrals: [facility]. [facility] Patient Instructions: Cervical Strain and Sprain With Rehab-SportsMed, Muscle Strain, [id number] Additional Instructions: The patient was provided with discharge instructions, notified to follow-up with a primary care doctor and or specialist in the next 24-48 hours, and to return to the ED if they have worsening of their symptoms. Please note that this report is being documented using Directly technology. This can lead to erroneous entry secondary to incorrect interpretation by the dictating instrument. Taiwo Boyd MD Jan 01, 2019 21:40
[2019-01-01] MEDS ORDERED: Dexamethasone 4mg/ml vial ONE (21:45)
[2019-01-01] MEDS ORDERED: Dexamethasone 4mg/ml vial IM ONE (21:45)
[2019-01-01] MEDS ORDERED: Ketorolac 60mg Inj IM ONE (21:45)
[2019-01-01] MEDS ORDERED: Lidocaine 1% Plain 30 ml INJ ONE (21:45)
[2019-01-01] MEDS ORDERED: NORCO 5-325 TA1 EACH ORAL (22:17)
[2019-01-01] MEDS ORDERED: ROBAXIN-750750 MG PO (22:18)
[2019-01-01] MEDS ORDERED: NAPROXEN250 MG ORAL (22:18)
[2019-01-01 22:23] VITALS: BP 122/80
[2019-01-01 22:24] VITALS: BP 122/80
--- NOTE | 2019-01-01 22:24 | NUR ---
ER DISCHARGE NOTE: Patient is cleared to be discharged per ERMD, pt is aox4, on room air, with stable vital signs. pt was given dc and prescription instructions, pt was able to verbalize understanding, pt id band removed without complications. pt is able to ambulate with steady gait. pt took all belongings.
== END 2019-01-01 22:25 | disposition home or self-care (01) ==
LOC: EMR 21:33
DX: M25.512 Pain in left shoulder (principal); Z88.8 Allergy status to other drugs, medicaments and biological substances; M43.6 Torticollis; T14.8XXA Other injury of unspecified body region, initial encounter; X58.XXXA Exposure to other specified factors, initial encounter; Y92.9 Unspecified place or not applicable
CPT/HCPCS: 96372; 96374; 99284; J1100; J2001

== ENCOUNTER 2019-01-03 10:54 | Emergency (ER) | payer SELFPAY ==
[~2019-01-03] VITALS: Ht 177.8 cm; Wt 86.2 kg
[~2019-01-03 10:54] MED LIST changes: +NAPROXEN250 MG ORAL
[2019-01-03 11:02] VITALS: BP 154/99
--- NOTE | 2019-01-03 11:11 | NUR ---
ED Nurse Note: Pt. AAOx4. Ambulatory. Walked in to ER due to having pain to left shoulder/lateral neck area "pinched nerve pain" denies injury to area good cms distally
[2019-01-03] MEDS ORDERED: Ketorolac 30mg Inj IM ONE (11:45)
--- NOTE | 2019-01-03 11:46 | Emergency Room Report ---
History of Present Illness General Chief Complaint: Upper Extremity Injury Source: Patient Present Illness HPI Disclaimer: Please note that this report is being documented using DRAGON technology. This can lead to erroneous entry secondary to incorrect interpretation by the dictating instrument. HPI: 38-year-old male history of asthma presents for evaluation of shoulder pain. Seen in the emergency department twice diagnosed with trapezius spasm. Last time he was given trigger point injections, methocarbamol, pain medication which she states resolved his symptoms. He then got a massage 2 days ago after which she noted return of the pain in the left shoulder. He is leaving for a wedding this weekend and states he has having significant difficulty moving his left shoulder. He is requesting reevaluation. Denies any numbness or tingling. Denies limitation to range of motion in the hands, wrist, elbow. Denies weakness in the left upper extremity. There was no new injury. Limitation with range of motion past 90 degrees PMH: Denies PSH: Denies Allergies: Erythromycin Social Hx: Denies alcohol, tobacco or drug abuse Allergies: Coded Allergies: ERYTHROMYCIN BASE (Unverified Adverse Reaction, Unknown, diarrhea, 11/17/18 ) Nursing Documentation-PMH Past Medical History: No History, Except For Hx Asthma: Yes Review of Systems All Other Systems: negative except mentioned in HPI Physical Exam Vital Signs Date Time Temp Pulse Resp B/P (MAP) Pulse Ox O2 Delivery O2 Flow Rate FiO2 01/03/19 11:02 97.9 82 18 154/99 99 Room Air General: Awake and alert, no acute distress HEENT: NC/AT. EOMI. Neck: Supple, trachea midline Chest Wall: No tenderness, no deformity Cardiovascular: RRR. S1 and S2 normal. No murmur appreciated Resp: Normal work of breathing. No cough, wheezing or crackles appreciated Abdomen: Abdomen is soft, nondistended. Nontender Skin: Intact. No abrasions, laceration or rash over the exposed skin MSK: Normal tone and bulk. Moving all extremities. No obvious deformity. It is over the shoulder joint, no effusion. Patient has limitation to range of motion on abduction due to pain at 90 degrees. Able to internally and externally rotate without difficulty. Able to flex extend, pronate and supinate at the elbow. Wrist and hands are full range of motion and strength. No tenderness from the shoulder joint distally down the left upper extremity. Neuro: Awake and alert. Mentating appropriately. Back/Spine: No midline tenderness in the cervical, thoracic or lumbosacral spine. There is tenderness over the trapezius on the left side just over the scapula. No one trigger point identified. Medical Decision Making Diagnostic Impression: Primary Impression: Trapezius muscle spasm ER Course 38-year-old male presents for evaluation of back pain. Appears to be suffering again from a spasm of his trapezius muscle. Do not believe he requires urgent imaging or labs at this time. He states he was unable to fill his Robaxin and [place] pain medication due to a lapse in his insurance. He is requesting treatment prior to leaving [facility] for the weekend. He was treated with Toradol and Valium in the emergency department. Was not discharged home with any other medications. He noted improvement prior to discharge. He will follow-up with his PMD and sort out his insurance when he returns from his trip this weekend. We discussed reasons to return to the emergency department should he experience worsening pain while he is away this weekend. He understands and agrees with the treatment plan and was discharged. Last Vital Signs Date Time Temp Pulse Resp B/P (MAP) Pulse Ox O2 Delivery O2 Flow Rate FiO2 01/03/19 11:02 97.9 82 18 154/99 (117) 99 Room Air Disposition: HOME, SELF-CARE Condition: Improved Referrals: NOT CHOSEN IPA/,REFERRING (PCP) Vaughn López MD Jan 03, 2019 11:46
[2019-01-03 11:59] VITALS: BP 154/99
--- NOTE | 2019-01-03 12:21 | NUR ---
ER DISCHARGE NOTE: Patient is cleared to be discharged per ERMD DR LÓPEZ, pt is aox4, on room air, with stable vital signs. pt was given dc instructions, pt was able to verbalize understanding, pt id band removed without complications. pt is able to ambulate with steady gait. pt took all belongings. Patient states he has to leave now to catch a plane, Dr. López ok for the patient to be discharged
== END 2019-01-03 12:21 | disposition home or self-care (01) ==
LOC: EMR 11:19
DX: M62.838 Other muscle spasm (principal); M54.9 Dorsalgia, unspecified; M25.512 Pain in left shoulder; Z88.8 Allergy status to other drugs, medicaments and biological substances
CPT/HCPCS: 96372; 99283; J1885

== ENCOUNTER 2019-01-15 23:14 | Emergency (ER) | payer MEDICAID ==
[~2019-01-15] VITALS: Ht 177.8 cm; Wt 86.2 kg
--- NOTE | 2019-01-15 23:29 | NUR ---
ED Nurse Note: Walk-in patient with complaints of recurrent pinched nerve and pain on right side. ERMd at bedside.
[2019-01-15 23:31] VITALS: BP 163/87
[2019-01-15] MEDS ORDERED: ALBUTEROL SULF8.5 GM INH (23:55)
[2019-01-15] MEDS ORDERED: BREO ELLIPTA 21 EACH IH (23:55)
[2019-01-15] MEDS ORDERED: GABAPENTIN100 MG ORAL (23:55)
--- NOTE | 2019-01-15 23:55 | Emergency Room Report ---
History of Present Illness General Chief Complaint: Pain Source: Patient Present Illness HPI 38-year-old male presents with left shoulder pain x3 weeks, patient states that he had injections previously which helped, patient states that he did partying in [place] last week which may have exacerbated his left shoulder pain, aggravated with movement alleviated with rest, severity is mild, no chest pain no shortness of breath no abdominal pain patient presents requesting something to help alleviate this. Patient states he has been unable to obtain a PCP appointment secondary to unavailability of his PCP Allergies: Coded Allergies: ERYTHROMYCIN BASE (Unverified Adverse Reaction, Unknown, diarrhea, 11/17/18 ) Patient History Past Medical History: see triage record Reviewed Nursing Documentation: PMH: Agreed; PSxH: Agreed Nursing Documentation-PMH Past Medical History: No History, Except For Hx Asthma: Yes Review of Systems All Other Systems: negative except mentioned in HPI Physical Exam Vital Signs Date Time Temp Pulse Resp B/P (MAP) Pulse Ox O2 Delivery O2 Flow Rate FiO2 01/15/19 23:20 98.1 86 18 163/87 (112) 98 Room Air Sp02 EP Interpretation: reviewed, normal General Appearance: well appearing, no apparent distress, alert Head: normocephalic, atraumatic Eyes: bilateral eye PERRL, bilateral eye EOMI ENT: uvula midline, moist mucus membranes Neck: supple, thyroid normal, supple/symm/no masses Respiratory: lungs clear, no respiratory distress, no retraction, no accessory muscle use Cardiovascular #1: normal peripheral pulses, regular rate, rhythm, no edema, no gallop, no murmur Gastrointestinal: non tender, soft, no guarding, no rebound Musculoskeletal: normal inspection, other - Left latissimus dorsi tender to palpation, left trapezius tender to palpation reproduces complaint Neurologic: alert, oriented x3 Psychiatric: mood/affect normal Skin: no rash, warm/dry Medical Decision Making Diagnostic Impression: Primary Impression: Cervical radicular pain Additional Impression: Muscle strain ER Course Patient with unremarkable exam, possible cervical radiculopathy versus muscle strain, counseled patient will start gabapentin disposition home with return precautions Last Vital Signs Date Time Temp Pulse Resp B/P (MAP) Pulse Ox O2 Delivery O2 Flow Rate FiO2 01/15/19 23:31 98.1 82 18 163/87 98 Room Air Disposition: HOME, SELF-CARE Condition: Stable Scripts Fluticasone/Vilanterol (Breo Ellipta 200-25 Mcg INH) 1 Each Blst.w.dev 1 EACH IH DAILY, #1 EA Prov: Taiwo Boyd MD 01/15/19 Albuterol Sulfate* (ALBUTEROL SULFATE MDI*) 8.5 Gm Hfa.aer.ad 2 PUFF INH Q4H PRN for Shortness of Breath, #1 EA 0 Refills Prov: Taiwo Boyd MD 01/15/19 Gabapentin* (GABAPENTIN*) 100 Mg Capsule 100 MG ORAL THREE TIMES A DAY, #60 CAP Prov: Taiwo Boyd MD 01/15/19 Referrals: [facility]. [facility] Patient Instructions: Cervical Radiculopathy, [id number], Muscle Strain, Easy -to-Read Additional Instructions: The patient was provided with discharge instructions, notified to follow-up with a primary care doctor and or specialist in the next 24-48 hours, and to return to the ED if they have worsening of their symptoms. Please note that this report is being documented using Flipaste technology. This can lead to erroneous entry secondary to incorrect interpretation by the dictating instrument. Taiwo Boyd MD Jan 15, 2019 23:55
[2019-01-15 23:59] VITALS: BP 148/82
== END 2019-01-16 | disposition home or self-care (01) ==
LOC: EMR 23:40
DX: S16.1XXA Strain of muscle, fascia and tendon at neck level, initial encounter (principal); X58.XXXA Exposure to other specified factors, initial encounter; Y92.89 Other specified places as the place of occurrence of the external cause; J45.909 Unspecified asthma, uncomplicated
CPT/HCPCS: 99282

== ENCOUNTER 2019-07-05 21:40 | Emergency (ER) | payer MEDICAID ==
[~2019-07-05] VITALS: Ht 177.8 cm; Wt 86.2 kg
[~2019-07-05 21:40] MED LIST changes: +GABAPENTIN100 MG ORAL
[2019-07-05 22:00] VITALS: BP 144/95
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
--- NOTE | 2019-07-05 22:20 | NUR ---
ED Nurse Note: ERMD at bedside
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
--- NOTE | 2019-07-05 22:55 | NUR ---
ED Nurse Note: pt taken to xray
[2019-07-05 23:00] VITALS: BP 144/95
--- NOTE | 2019-07-05 23:11 | NUR ---
ED Nurse Note: pt returned from xray, no s/s of distress noted. VSS stable. pt resting in bed
--- NOTE | 2019-07-05 23:21 | Diagnostic Imaging Report ---
EXAM: XR Lumbosacral Spine, 2 or 3 Views CLINICAL HISTORY: PAIN TECHNIQUE: Frontal and lateral views of the lumbar spine and sacrum. COMPARISON: No relevant prior studies available. FINDINGS: Vertebrae: There is transitional anatomy. Hypoplastic ribs at L1. No acute fracture. Trace retrolisthesis at L4-5 and L5-S1. Mild to moderate degenerative disc disease at these levels. Facet arthropathy most pronounced within the lower lumbar spine. Superior endplate Schmorl's node at L3. No acute fracture. Sacrum/coccyx: Unremarkable as visualized. No acute fracture. Soft tissues: Unremarkable. IMPRESSION: 1. No acute fracture. 2. Mild to moderate degenerative changes at L4-5 and L5-S1.
--- NOTE | 2019-07-05 23:27 | NUR ---
ED Nurse Note: ERMD at bedside
[2019-07-05] MEDS ORDERED: ROBAXIN-750750 MG PO (23:30)
[2019-07-05] MEDS ORDERED: IBUPROFEN600 MG ORAL (23:30)
[2019-07-05] MEDS ORDERED: LIDODERM700 M1 TOPIC (23:30)
[2019-07-06 00:30] VITALS: BP 135/87
[2019-07-06 00:56] VITALS: BP 135/87
--- NOTE | 2019-07-06 00:56 | NUR ---
ER DISCHARGE NOTE: Patient is cleared to be discharged home per ERMD, pt is aox4, on room air, with stable vital signs. pt was given dc and prescription instructions, pt was able to verbalize understanding, pt id band removed. pt is able to ambulate with steady gait. pt took all belongings.
== END 2019-07-06 00:56 | disposition home or self-care (01) ==
LOC: EMR 22:12
DX: S16.1XXA Strain of muscle, fascia and tendon at neck level, initial encounter (principal); V43.62XA Car passenger injured in collision with other type car in traffic accident, initial encounter; Y92.410 Unspecified street and highway as the place of occurrence of the external cause; Z88.8 Allergy status to other drugs, medicaments and biological substances; M54.9 Dorsalgia, unspecified
CPT/HCPCS: 72020; Z7502; 99283

== ENCOUNTER 2020-03-20 18:08 | Emergency (ER) | payer MEDICAID, OTHER ==
[~2020-03-20] VITALS: Ht 177.8 cm; Wt 86.2 kg
[~2020-03-20 18:08] MED LIST changes: +LIDODERM700 M1 TOPIC
[2020-03-20 18:13] VITALS: BP 127/74
[2020-03-20 18:26] VITALS: BP 124/71
[2020-03-20] MEDS ORDERED: Methocarbamol 500mg tab ORAL ONE (19:15)
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
--- NOTE | 2020-03-20 20:22 | Diagnostic Imaging Report ---
CT head without contrast History: Pain Technique: Axial noncontrast head CT. Coronal, sagittal reformatted images. Technique more: CTDI is 53.4 mGy and DLP is 1152.4 mGy-cm. Technique more: One or more of the following dose reduction techniques were used: automated exposure control, adjustment of the mA and/or kV according to patient size, use of iterative reconstruction technique. COMPARISON: FINDINGS: No intracranial hemorrhage, abnormal intra- or extra-axial collections or parenchymal lesions are seen. The shape and configuration of the cortical sulci, basal cisterns and ventricles are within normal limits. Cavum septum pellucidum is noted. The cornell-white differentiation is preserved. No evidence of mass effect, midline shift, or edema. The osseous structures are unremarkable. Nonspecific low-density areas in left and right parietal diploic space. The visualized portions of the paranasal sinuses are clear. IMPRESSION: Normal non-contrast CT scan of the head.
--- NOTE | 2020-03-20 20:25 | Diagnostic Imaging Report ---
ADDENDUM - Added by Luc Tucker MD on 03/20/2020 8:28 PM (-07:00) CT lumbar spine History: Pain Technique: Axial CT of the lumbar spine with coronal, sagittal reformatted images. Technique more: CTDI is 13.2 mGy and DLP is 497.0 mGy-cm. Technique more: One or more of the following dose reduction techniques were used: automated exposure control, adjustment of the mA and/or kV according to patient size, use of iterative reconstruction technique. Findings: Soft tissues: Lung bases are clear. Normal caliber of the aorta. Retroperitoneum is unremarkable. Canal size: Normal Lumbar spine: Anatomic alignment of the vertebral bodies with straightening of the normal lumbar lordosis. Superior anterior L3 limbus vertebral body. Moderate loss of disc height and vacuum phenomena at L4- 5. Peripheral spurs cause moderate bilateral neural foraminal stenosis. Mild L5-S1 disc space narrowing. Impression: 1. Straightening of the normal lumbar lordosis with degenerative change at L4-5. CT cervical without contrast History: Pain Technique: Axial CT of the cervical spine with coronal, sagittal reformatted images. Technique more: CTDI is 13.2 mGy and DLP is 497.0 mGy-cm. Technique more: One or more of the following dose reduction techniques were used: automated exposure control, adjustment of the mA and/or kV according to patient size, use of iterative reconstruction technique. Findings: Soft tissues: No focal findings. Small anterior cervical chain, dad millimeters anterior submental lymph nodes. Lung apices: Normal Bones: Mild reversal of the normal cervical lordosis with apex at C5. Severe left greater than right disc and uncovertebral joint space narrowing at C5-6, mild to moderate at C6-7 and mild at C4-5 level. Impression: 1. No acute findings. 2. At C5-6, Severe left greater than right uncovertebral joint space narrowing and neural foramina stenosis.
--- NOTE | 2020-03-20 20:30 | Diagnostic Imaging Report ---
CT cervical without contrast History: Pain Technique: Axial CT of the cervical spine with coronal, sagittal reformatted images. Technique more: CTDI is 20.2 mGy and DLP is 562.8 mGy-cm. Technique more: One or more of the following dose reduction techniques were used: automated exposure control, adjustment of the mA and/or kV according to patient size, use of iterative reconstruction technique. Findings: Soft tissues: No focal findings. Small anterior cervical chain, dad millimeters anterior submental lymph nodes. Lung apices: Normal Bones: Mild reversal of the normal cervical lordosis with apex at C5. Severe left greater than right disc and uncovertebral joint space narrowing at C5-6, mild to moderate at C6-7 and mild at C4-5 level. Impression: 1. No acute findings. 2. At C5-6, Severe left greater than right uncovertebral joint space narrowing and neural foramina stenosis.
[2020-03-20] MEDS ORDERED: LIDODERM700 M1 TOPIC (20:37)
[2020-03-20] MEDS ORDERED: ROBAXIN-750750 MG PO (20:37)
[2020-03-20] MEDS ORDERED: IBUPROFEN600 M1 ORAL (20:37)
== END 2020-03-20 20:54 | disposition home or self-care (01) ==
LOC: EMR 18:31
DX: S16.1XXA Strain of muscle, fascia and tendon at neck level, initial encounter (principal); S39.012A Strain of muscle, fascia and tendon of lower back, initial encounter; V43.62XA Car passenger injured in collision with other type car in traffic accident, initial encounter; Y92.410 Unspecified street and highway as the place of occurrence of the external cause; Z88.8 Allergy status to other drugs, medicaments and biological substances
CPT/HCPCS: 70450; 72125; 72131; Z7502; 99284

== ENCOUNTER 2020-04-29 22:17 | Emergency (ER) | payer OTHER ==
[~2020-04-29] VITALS: Ht 177.8 cm; Wt 83.9 kg
[~2020-04-29 22:17] MED LIST changes: +IBUPROFEN600 M1 ORAL
[2020-04-29 22:35] VITALS: BP 111/68
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
--- NOTE | 2020-04-29 23:10 | Diagnostic Imaging Report ---
CT head without contrast History: Pain, trauma Technique: Axial noncontrast head CT. Technique more: CTDI is 53.4 mGy and DLP is 997.3 mGy-cm. Technique more: One or more of the following dose reduction techniques were used: automated exposure control, adjustment of the mA and/or kV according to patient size, use of iterative reconstruction technique. Comparison: 03/20/2020 FINDINGS: No intracranial hemorrhage, abnormal intra- or extra-axial collections or parenchymal lesions are seen. The shape and configuration of the cortical sulci, basal cisterns and ventricles are within normal limits. The cornell-white differentiation is preserved. No evidence of mass effect, midline shift, or edema. 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 Cavum septum pellucidum is noted. The osseous structures are unremarkable. Mild right posterior maxillary sinus mucosal thickening. Otherwise paranasal sinuses, mastoid air cells are clear. IMPRESSION: 1. No acute intracranial finding or change from prior exam.
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
[2020-04-30] MEDS ORDERED: NAPROXEN250 M1 PO (00:03)
[2020-04-30] MEDS ORDERED: ROBAXIN-500MG ORAL (00:03)
[2020-04-30 00:11] VITALS: BP 142/72
== END 2020-04-30 00:09 | disposition home or self-care (01) ==
LOC: EMR 22:35
DX: M54.2 Cervicalgia (principal); M54.5 Low back pain; M51.46 Schmorl's nodes, lumbar region; J45.909 Unspecified asthma, uncomplicated; V43.62XA Car passenger injured in collision with other type car in traffic accident, initial encounter; Y92.411 Interstate highway as the place of occurrence of the external cause; Z88.1 Allergy status to other antibiotic agents
CPT/HCPCS: 70450; 72020; 72125; Z7502; 99284